=== PATIENT | female | born 1945 | race Caucasian/White ===

== ENCOUNTER 2017-04-02 14:46 | Observation (INO) | payer MEDICARE ==
--- NOTE | 2017-04-02 14:51 | ED ---
General Adult HPI - General Stated complaint: chest pain Time Seen by Provider: 04/02/17 14:48 Source: RN notes reviewed, old records reviewed - History of Present Illness Initial comments: This is a 71-year-old female ER for evaluation per patient coming in for evaluation of chest pain or syncope. Patient has history of high blood pressure high cholesterol, no prior history of specific heart disease. Has had heart catheterization greater than 10 years ago which was negative presumably. Patient has no fever no cough or congestion. Patient was taking going for a walk initially returned up a flight of stairs she became severely short of breath and diaphoretic and having anterior chest pain. Patient and EMS was called, and around the hospital patient states she has started to feel better, clamminess is decreasing shortness of breath is improved and chest pain is mildly existent - Related Data Home Medications Medication Instructions Recorded Confirmed Aspirin 81 mg PO DAILY 04/02/17 04/02/17 Atorvastatin [Lipitor] 20 mg PO Q48H 04/02/17 04/02/17 Calcium Carbonate/Vitamin D3 1 cap PO DAILY 04/02/17 04/02/17 [Calcium 600-Vit D3 500 Softgel] Diltiazem HCl [Diltiazem ER] 240 mg PO DAILY 04/02/17 04/02/17 Esomeprazole Magnesium [NexIUM] 40 mg PO DAILY 04/02/17 04/02/17 Ferrous Sulfate [Feosol] 325 mg PO DAILY 04/02/17 04/02/17 Gabapentin [Neurontin] 300 mg PO BID 04/02/17 04/02/17 Glucosam/Balaji-Msm1/C/Jason/Bosw 1 tab PO DAILY 04/02/17 04/02/17 [Glucosamine-Chondroitin Tablet] Hydroxychloroquine Sulfate 200 mg PO DAILY 04/02/17 04/02/17 [Plaquenil] Levothyroxine Sodium [Synthroid] 75 mcg PO DAILY 04/02/17 04/02/17 Multivit-Min/FA/Lycopen/Lutein 1 tab PO DAILY 04/02/17 04/02/17 [Centrum Silver Tablet] Temazepam 30 mg PO HS 04/02/17 04/02/17 predniSONE 10 mg PO DAILY 04/02/17 04/02/17 traMADol HCl [Ultram] 50 mg PO Q6H PRN 04/02/17 04/02/17 Allergies Allergy/AdvReac Type Severity Reaction Status Date / Time erythromycin base Allergy Rash/Hives Verified 04/02/17 15:06 Iodinated Contrast- Oral and Allergy Rash/Hives Verified 04/02/17 15:06 IV Dye oxcarbazepine Allergy Unknown Verified 04/02/17 15:06 [From Trileptal] Penicillins Allergy Rash/Hives Verified 04/02/17 15:06 Sulfa (Sulfonamide Allergy Rash/Hives Verified 04/02/17 15:06 Antibiotics) Review of Systems ROS Statement: Those systems with pertinent positive or pertinent negative responses have been documented in the HPI. ROS Other: All systems not noted in ROS Statement are negative. General Exam General appearance: alert, in no apparent distress Head exam: Present: atraumatic, normocephalic, normal inspection Eye exam: Present: normal appearance, PERRL, EOMI. Absent: scleral icterus, conjunctival injection, periorbital swelling ENT exam: Present: normal exam, mucous membranes moist Neck exam: Present: normal inspection. Absent: tenderness, meningismus, lymphadenopathy Respiratory exam: Present: normal lung sounds bilaterally. Absent: respiratory distress, wheezes, rales, rhonchi, stridor Cardiovascular Exam: Present: regular rate, normal rhythm, normal heart sounds. Absent: systolic murmur, diastolic murmur, rubs, gallop, clicks GI/Abdominal exam: Present: soft, normal bowel sounds. Absent: distended, tenderness, guarding, rebound, rigid Extremities exam: Present: normal inspection, full ROM, normal capillary refill. Absent: tenderness, pedal edema, joint swelling, calf tenderness Back exam: Present: normal inspection Neurological exam: Present: alert, oriented X3, CN II-XII intact Psychiatric exam: Present: normal affect, normal mood Skin exam: Present: warm, dry, intact, normal color. Absent: rash Course Vital Signs 04/02/17 14:52 Temperature 98.3 F Pulse Rate 76 Respiratory 18 Rate Blood Pressure 132/60 O2 Sat by Pulse 98 Oximetry - Reevaluation(s) Reevaluation #1: 04/02/17 15:39 Patient continues to remain asymptomatic his symptoms have improved upon arrival to Hospital EKG Findings - EKG Comments: EKG Findings:: EKG shows normal sinus rhythm rate of 71, HI 146, QRS 94, QTC 449 Medical Decision Making - Medical Decision Making 71 female ear with near syncopal event, chest pain. Patient was going up stairs and felt diaphoretic and short of breath with chest pain. EKG is negative for ST elevation, patient be admitted for cardiac observation and anticoagulation inflammatory - Lab Data Result diagrams: 04/02/17 15:04 04/02/17 15:04 Lab Results 04/02/17 04/02/17 04/02/17 Range/Units 15:04 15:04 15:04 WBC 3.6 L (3.8-10.6) k/uL RBC 4.08 (3.80-5.40) m/uL Hgb 12.7 (11.4-16.0) gm/dL Hct 35.6 (34.0-46.0) % MCV 87.3 (80.0-100.0) fL MCH 31.1 (25.0-35.0) pg MCHC 35.6 (31.0-37.0) g/dL RDW 12.4 (11.5-15.5) % Plt Count 177 (150-450) k/uL Neutrophils % 79 % Lymphocytes % 11 % Monocytes % 7 % Eosinophils % 1 % Basophils % 0 % Neutrophils # 2.8 (1.3-7.7) k/uL Lymphocytes # 0.4 L (1.0-4.8) k/uL Monocytes # 0.2 (0-1.0) k/uL Eosinophils # 0.0 (0-0.7) k/uL Basophils # 0.0 (0-0.2) k/uL PT 10.6 (9.0-12.0) sec INR 1.0 (<1.2) APTT 22.3 (22.0-30.0) sec Sodium 136 L (137-145) mmol/L Potassium 3.8 (3.5-5.1) mmol/L Chloride 99 (98-107) mmol/L Carbon Dioxide 27 (22-30) mmol/L Anion Gap 10 mmol/L BUN 25 H (7-17) mg/dL Creatinine 1.02 (0.52-1.04) mg/dL Est GFR (MDRD) Af Amer >60 (>60 ml/min/1.73 sqM) Est GFR (MDRD) Non-Af 53 (>60 ml/min/1.73 sqM) Glucose 143 H (74-99) mg/dL Calcium 9.2 (8.4-10.2) mg/dL Magnesium 1.6 (1.6-2.3) mg/dL Total Bilirubin 0.4 (0.2-1.3) mg/dL AST 34 (14-36) U/L ALT 34 (9-52) U/L Alkaline Phosphatase 50 (38-126) U/L Total Protein 6.4 (6.3-8.2) g/dL Albumin 4.1 (3.5-5.0) g/dL Lipase 379 H (23-300) U/L - Radiology Data Radiology results: report reviewed (Chest x-ray is negative for acute disease), image reviewed Critical Care Time Critical Care Time: Yes Total Critical Care Time: 31 Disposition Clinical Impression: Chest pain, Near syncope Disposition: ADMITTED IP TO THIS [facility] Condition: Undetermined Instructions: Chest Pain (ED) Referrals: Nonstaff,Physician [Primary Care Provider] - 1-2 days
[2017-04-02 15:22] LABS: Basophils % (A) 0 %; CH 30.8; CHCM 35.4; Eosinophils % (A) 1 %; HCT 35.6 % (34.0-46.0); HDW 2.45; HGB 12.7 gm/dL (11.4-16.0); Luc # (Auto) 0.07; Luc % (Auto) 2; Lymphocytes # (A) 0.4 k/uL (1.0-4.8); Lymphocytes % (A) 11 %; MCH 31.1 pg (25.0-35.0); MCHC 35.6 g/dL (31.0-37.0); MCV 87.3 fL (80.0-100.0); Mean Platelet Volume 6.7; Monocytes # (A) 0.2 k/uL (0-1.0); Monocytes % (A) 7 %; Neutrophils # (A) 2.8 k/uL (1.3-7.7); Neutrophils % (A) 79 %; RBC 4.08 m/uL (3.80-5.40); RDW 12.4 % (11.5-15.5); WBC 3.6 k/uL (3.8-10.6); WBC (Perox) 3.72
--- NOTE | 2017-04-02 15:23 | XR ---
EXAMINATION TYPE: XR chest 2V DATE OF EXAM: 04/02/2017 HISTORY: Chest Pain. REFERENCE: NONE. FINDINGS: There is some scarring or atelectasis at the left lung base. There is a prominent hiatal he rnia present behind the heart. Pleural spaces are clear. The heart is not enlarged. IMPRESSION: 1. SCARRING VERSUS ATELECTASIS, LEFT LUNG BASE. 2. LARGE HIATAL HERNIA.
[2017-04-02 15:29] LABS: ALT 34 U/L (9-52); AST 34 U/L (14-36); Alkaline Phosphatase 50 U/L (38-126); Anion Gap 10 mmol/L; Blood Urea Nitrogen 25 mg/dL (7-17); Calcium 9.2 mg/dL (8.4-10.2); Carbon Dioxide 27 mmol/L (22-30); Chloride 99 mmol/L (98-107); Glucose 143 mg/dL (74-99); Magnesium 1.6 mg/dL (1.6-2.3); Non-African American GFR(MDRD) 53 (>60 ml/min/1.73 sqM); Potassium 3.8 mmol/L (3.5-5.1); Sodium 136 mmol/L (137-145); Total Bilirubin 0.4 mg/dL (0.2-1.3); Total Protein 6.4 g/dL (6.3-8.2)
[2017-04-02 15:34] LABS: Partial Thromboplastin Time 22.3 sec (22.0-30.0); Prothrombin Time 10.6 sec (9.0-12.0)
[2017-04-02] MEDS ORDERED: NITROGLYCERIN SL TABS 0.4 MG TAB SUBLINGUAL PRN (15:34)
[2017-04-02] MEDS ORDERED: HEPARIN SODIUM,PORCINE 5,000 UNIT/ML 1 ML VIAL IV ONE (15:34)
[2017-04-02] MEDS ORDERED: HEPARIN SODIUM,PORCINE 5,000 UNIT/ML 1 ML VIAL IV PRN (15:34)
[2017-04-02] MEDS ORDERED: ASPIRIN 81 MG CHEW PO STA (15:34)
[2017-04-02 15:40] LABS: Creatine Kinase 84 U/L (30-135)
[2017-04-02] MEDS ORDERED: HEPARIN SODIUM,PORCINE/D5W PMX 25,000 UNIT in DEXTROSE/WATER 1 500ML.BAG IV SCH (15:45)
[2017-04-02 15:52] LABS: Creatine Kinase MB 1.6 ng/mL (0.0-2.4); Troponin I <0.012 ng/mL (0.000-0.034)
[2017-04-02] MEDS: SODIUM CHLORIDE 0.9% 1,000 ML IV SCH (15:59)
[2017-04-02] MEDS ORDERED: TEMAZEPAM 30 MG CAP PO SCH (21:00)
[2017-04-02] MEDS: GABAPENTIN 300 MG CAP PO SCH (21:15)
[2017-04-02 21:42] LABS: Creatine Kinase 82 U/L (30-135)
[2017-04-02 21:55] LABS: Creatine Kinase MB 1.3 ng/mL (0.0-2.4); Troponin I <0.012 ng/mL (0.000-0.034)
[2017-04-03] MEDS: SODIUM CHLORIDE 0.9% 1,000 ML IV SCH ×2 (00:53→12:19)
[2017-04-03 04:45] LABS: Creatine Kinase 76 U/L (30-135)
[2017-04-03 04:50] LABS: Basophils % (A) 0 %; CH 30.6; CHCM 34.7; Eosinophils # (A) 0.1 k/uL (0-0.7); Eosinophils % (A) 4 %; HCT 34.6 % (34.0-46.0); HDW 2.45; HGB 11.8 gm/dL (11.4-16.0); Luc % (Auto) 4; Lymphocytes # (A) 0.6 k/uL (1.0-4.8); Lymphocytes % (A) 25 %; MCH 30.1 pg (25.0-35.0); MCHC 34.1 g/dL (31.0-37.0); MCV 88.3 fL (80.0-100.0); Mean Platelet Volume 7.1; Monocytes # (A) 0.3 k/uL (0-1.0); Monocytes % (A) 10 %; Neutrophils # (A) 1.5 k/uL (1.3-7.7); Neutrophils % (A) 58 %; RBC 3.92 m/uL (3.80-5.40); RDW 12.6 % (11.5-15.5); WBC 2.6 k/uL (3.8-10.6); WBC (Perox) 2.72
[2017-04-03 04:58] LABS: Creatine Kinase MB 1.3 ng/mL (0.0-2.4); Troponin I <0.012 ng/mL (0.000-0.034)
[2017-04-03 05:11] LABS: ALT 35 U/L (9-52); AST 33 U/L (14-36); Alkaline Phosphatase 42 U/L (38-126); Amylase 80 U/L (30-110); Anion Gap 8 mmol/L; Blood Urea Nitrogen 20 mg/dL (7-17); Calcium 8.5 mg/dL (8.4-10.2); Carbon Dioxide 26 mmol/L (22-30); Chloride 106 mmol/L (98-107); Glucose 71 mg/dL (74-99); Non-African American GFR(MDRD) >60 (>60 ml/min/1.73 sqM); Potassium 3.5 mmol/L (3.5-5.1); Sodium 140 mmol/L (137-145); Total Bilirubin 0.3 mg/dL (0.2-1.3); Total Protein 5.5 g/dL (6.3-8.2)
[2017-04-03 05:25] LABS: Cholesterol 158 mg/dL (<200); HDL Cholesterol 77 mg/dL (40-60)
[2017-04-03] MEDS ORDERED: LEVOTHYROXINE 75 MCG TAB PO SCH (06:30)
[2017-04-03] MEDS ORDERED: PANTOPRAZOLE 40 MG TABLET PO SCH (07:30)
--- NOTE | 2017-04-03 08:25 | US ---
EXAMINATION TYPE: US abdomen complete DATE OF EXAM: 04/03/2017 COMPARISON: NONE CLINICAL HISTORY: elevated lipase. Elevated lipase, intermittent epigastric pain x 1 week EXAM MEASUREMENTS: Liver Length: 14.4 cm Gallbladder Wall: 0.2 cm CBD: 0.6 cm Spleen: 9.2 cm Right Kidney: 9.8 x 4.8 x 4.6 cm Left Kidney: 8.0 x 4.1 x 4.4 cm Pancreas: visualized portions wnl, body and tail obscured by overlying midline bowel gas Liver: somewhat heterogeneous echotexture without any definite lesions seen at this time Gallbladder: wnl Evidence for sonographic Jama's sign: no CBD: measures in upper limits of normal at 0.6cm Spleen: visualized portions wnl, limited by overlying bowel gas Right Kidney: wnl Left Kidney: appear heterogeneous and small in size with 1.3cm cystic area midpole, possible cyst vs . dilated renal pelvis Upper IVC: wnl Abd Aorta: visualized portions wnl, limited by overlying midline bowel gas The liver is coarse in its overall echo texture. The intrahepatic portion of the IVC and proximal abd ominal aorta are within normal limits. There is no evidence of cholelithiasis. Common bile duct is unremarkable. The visualized portions of the pancreas are homogenous. The spleen is unremarkable. R enal parenchymal thinning bilaterally left greater than right. Left renal cortical cyst midpole measu ring 1.3 cm parapelvic in location. IMPRESSION: 1. Fatty liver versus diffuse hepatocellular disease. 2. Renal parenchymal thinning and suggestion medical renal disease. Parapelvic cyst left kidney.
--- NOTE | 2017-04-03 08:36 | P.GSCN ---
History of Present Illness Consult date: 04/03/17 Reason for Consult: Elevated lipase History of present illness: The patient's a pleasant 71-year-old female who was at the beach yesterday. She walked up some stairs. When she began to walk to the parking lot however she developed significant pressure in her chest along with shortness of breath. She came into the emergency department via ambulance and is proved since admission. She's never had anything like this in the past. No previous heart disease. No abdominal pain, nausea, vomiting. She does have a known hiatal hernia 40 years along with Guillen's esophagus. Her last endoscopy was about a year ago. She occasionally has acid reflux but this does not feel like acid reflux to her. No blood in the stools or dark tarry stools. No previous history of pancreatitis. Her sister has been recently diagnosed with pancreatic cancer, about a year ago, and is undergoing chemotherapy Review of Systems All systems: negative Past Medical History Past Medical History: Cancer, Fibromyalgia, GERD/Reflux, Hyperlipidemia, Hypertension, Osteoarthritis (OA), Rheumatoid Arthritis (RA), Thyroid Disorder Additional Past Medical History / Comment(s): Lupus, pericarditis, bronchitis, ischemic colitis x2, basal cell skin ca and stage 2 uterine cancer-had sx/rad/ chemo, tremors, migraines, hiatal hernia, Guillen's esophagus History of Any Multi-Drug Resistant Organisms: None Reported Past Surgical History: Heart Catheterization, Hysterectomy, Orthopedic Surgery, Tonsillectomy, Tubal Ligation Additional Past Surgical History / Comment(s): rectal fissure/abcess, x2 lt ankle arthroscopies. benign cysts removed. Additional Past Anesthesia/Blood Transfusion Reaction / Comm: blood transfusion- no reaction. clausterphobic. Smoking Status: Former smoker Past Alcohol Use History: None Reported (She does not currently drink however she says she did use to drink quite a bit of beer) - Past Family History Mother Family Medical History: Cancer, Hypertension, Thyroid Disorder Additional Family Medical History / Comment(s): mom from colon ca at age 49 Father Family Medical History: Cancer, Prostate Disorder Additional Family Medical History / Comment(s): from prostate cancer at age 68 Medications and Allergies Home Medications Medication Instructions Recorded Confirmed Type Aspirin 81 mg PO DAILY 04/02/17 04/02/17 History Atorvastatin [Lipitor] 20 mg PO Q48H 04/02/17 04/02/17 History Calcium Carbonate/Vitamin D3 1 cap PO DAILY 04/02/17 04/02/17 History [Calcium 600-Vit D3 500 Softgel] Ioaflwbzmxultn-AE-Laifgoveen 1 tab PO DAILY 04/02/17 04/02/17 History [Folbic] Diltiazem HCl [Diltiazem ER] 240 mg PO DAILY 04/02/17 04/02/17 History Esomeprazole Magnesium [NexIUM] 40 mg PO DAILY 04/02/17 04/02/17 History Ferrous Sulfate [Feosol] 325 mg PO DAILY 04/02/17 04/02/17 History Gabapentin [Neurontin] 300 mg PO BID 04/02/17 04/02/17 History Glucosam/Balaji-Msm1/C/Jason/Bosw 1 tab PO DAILY 04/02/17 04/02/17 History [Glucosamine-Chondroitin Tablet] Hydroxychloroquine Sulfate 200 mg PO DAILY 04/02/17 04/02/17 History [Plaquenil] Levothyroxine Sodium [Synthroid] 75 mcg PO DAILY 04/02/17 04/02/17 History Multivit-Min/FA/Lycopen/Lutein 1 tab PO DAILY 04/02/17 04/02/17 History [Centrum Silver Tablet] Temazepam 30 mg PO HS 04/02/17 04/02/17 History predniSONE 2.5 mg PO DAILY 04/02/17 04/02/17 History traMADol HCl [Ultram] 50 mg PO Q6H PRN 04/02/17 04/02/17 History Allergies Allergy/AdvReac Type Severity Reaction Status Date / Time erythromycin base Allergy Rash/Hives Verified 04/02/17 21:28 Iodinated Contrast- Oral and Allergy Rash/Hives Verified 04/02/17 21:28 IV Dye oxcarbazepine Allergy Unknown Verified 04/02/17 21:28 [From Trileptal] Penicillins Allergy Rash/Hives Verified 04/02/17 21:28 Sulfa (Sulfonamide Allergy Rash/Hives Verified 04/02/17 21:28 Antibiotics) Surgical - Exam Osteopathic Statement: *. No significant issues noted on an osteopathic structural exam other than those noted in the History and Physical/Consult. Vital Signs Temp Pulse Resp BP Pulse Ox 98.3 F 76 18 132/60 98 04/02/17 14:52 04/02/17 14:52 04/02/17 14:52 04/02/17 14:52 04/02/17 14:52 - General well developed, well nourished, no distress - Eyes normal ocular movement - ENT normal mucosa, no hearing loss, no congestion - Neck trachea midline, no venous distension - Respiratory normal respiratory effort, clear to auscultation - Cardiovascular Rhythm: regular - Abdomen Abdomen: soft, non tender, bowel sounds, no guarding, no rigid, no rebound, no distended - Psychiatric oriented to time, oriented to person, oriented to place, speech is normal, memory intact Results - Labs 04/03/17 04:00 04/03/17 04:00 Abnormal Lab Results - Last 24 Hours (Table) 04/02/17 04/02/17 04/02/17 Range/Units 15:04 15:04 21:01 WBC 3.6 L (3.8-10.6) k/uL Plt Count (150-450) k/uL Lymphocytes # 0.4 L (1.0-4.8) k/uL APTT 52.8 H (22.0-30.0) sec Sodium 136 L (137-145) mmol/L BUN 25 H (7-17) mg/dL Glucose 143 H (74-99) mg/dL Total Protein (6.3-8.2) g/dL Albumin (3.5-5.0) g/dL HDL Cholesterol (40-60) mg/dL Lipase 379 H (23-300) U/L 04/03/17 04/03/17 04/03/17 Range/Units 04:00 04:00 04:00 WBC 2.6 L (3.8-10.6) k/uL Plt Count 149 L (150-450) k/uL Lymphocytes # 0.6 L (1.0-4.8) k/uL APTT 52.3 H (22.0-30.0) sec Sodium (137-145) mmol/L BUN (7-17) mg/dL Glucose (74-99) mg/dL Total Protein (6.3-8.2) g/dL Albumin (3.5-5.0) g/dL HDL Cholesterol 77 H (40-60) mg/dL Lipase (23-300) U/L 04/03/17 Range/Units 04:00 WBC (3.8-10.6) k/uL Plt Count (150-450) k/uL Lymphocytes # (1.0-4.8) k/uL APTT (22.0-30.0) sec Sodium (137-145) mmol/L BUN 20 H (7-17) mg/dL Glucose 71 L (74-99) mg/dL Total Protein 5.5 L (6.3-8.2) g/dL Albumin 3.4 L (3.5-5.0) g/dL HDL Cholesterol (40-60) mg/dL Lipase 430 H (23-300) U/L Diabetes panel 04/02/17 04/03/17 04/03/17 Range/Units 15:04 04:00 04:00 Sodium 136 L 140 (137-145) mmol/L Potassium 3.8 3.5 (3.5-5.1) mmol/L Chloride 99 106 (98-107) mmol/L Carbon Dioxide 27 26 (22-30) mmol/L BUN 25 H 20 H (7-17) mg/dL Creatinine 1.02 0.80 (0.52-1.04) mg/dL Glucose 143 H 71 L (74-99) mg/dL Calcium 9.2 8.5 (8.4-10.2) mg/dL AST 34 33 (14-36) U/L ALT 34 35 (9-52) U/L Alkaline Phosphatase 50 42 (38-126) U/L Total Protein 6.4 5.5 L (6.3-8.2) g/dL Albumin 4.1 3.4 L (3.5-5.0) g/dL Triglycerides 27 (<150) mg/dL HDL Cholesterol 77 H (40-60) mg/dL Calcium panel 04/02/17 04/03/17 Range/Units 15:04 04:00 Calcium 9.2 8.5 (8.4-10.2) mg/dL Albumin 4.1 3.4 L (3.5-5.0) g/dL Pituitary panel 04/02/17 04/03/17 Range/Units 15:04 04:00 Sodium 136 L 140 (137-145) mmol/L Potassium 3.8 3.5 (3.5-5.1) mmol/L Chloride 99 106 (98-107) mmol/L Carbon Dioxide 27 26 (22-30) mmol/L BUN 25 H 20 H (7-17) mg/dL Creatinine 1.02 0.80 (0.52-1.04) mg/dL Glucose 143 H 71 L (74-99) mg/dL Calcium 9.2 8.5 (8.4-10.2) mg/dL Adrenal panel 04/02/17 04/03/17 Range/Units 15:04 04:00 Sodium 136 L 140 (137-145) mmol/L Potassium 3.8 3.5 (3.5-5.1) mmol/L Chloride 99 106 (98-107) mmol/L Carbon Dioxide 27 26 (22-30) mmol/L BUN 25 H 20 H (7-17) mg/dL Creatinine 1.02 0.80 (0.52-1.04) mg/dL Glucose 143 H 71 L (74-99) mg/dL Calcium 9.2 8.5 (8.4-10.2) mg/dL Total Bilirubin 0.4 0.3 (0.2-1.3) mg/dL AST 34 33 (14-36) U/L ALT 34 35 (9-52) U/L Alkaline Phosphatase 50 42 (38-126) U/L Total Protein 6.4 5.5 L (6.3-8.2) g/dL Albumin 4.1 3.4 L (3.5-5.0) g/dL Assessment and Plan (1) Elevated lipase Status: Acute (2) Chest pain Status: Acute (3) Near syncope Status: Acute Plan: An ultrasound of the pancreas has been completed, the report is pending. I doubt the chest pressure and shortness of breath are related to the elevated lipase. Recommend cardiac workup. Follow up on a when necessary basis
[2017-04-03] MEDS ORDERED: predniSONE 10 MG TAB PO SCH (09:00)
[2017-04-03] MEDS ORDERED: ASPIRIN 81 MG CHEW PO SCH (09:00)
[2017-04-03] MEDS ORDERED: DILTIAZEM CD 240 MG CAP.ER.24H PO SCH (09:00)
[2017-04-03] MEDS ORDERED: CALCIUM CARB-VIT D 500MG-200UN 1 EACH TAB PO SCH (09:00)
[2017-04-03] MEDS ORDERED: ASPIRIN 325 MG TAB PO SCH (09:00)
[2017-04-03] MEDS ORDERED: ATORVASTATIN 80 MG TAB PO SCH (09:00)
[2017-04-03] MEDS ORDERED: HYDROXYCHLOROQUINE SULFATE 200 MG TAB PO SCH (09:00)
[2017-04-03] MEDS ORDERED: FERROUS SULFATE 325 MG TAB PO SCH (09:00)
[2017-04-03] MEDS ORDERED: methylPREDNISolone SOD SUCCI 125 MG/2 ML VIAL IV STA (10:03)
[2017-04-03] MEDS ORDERED: diphenhydrAMINE 50 MG/ML 1 ML VIAL IVP STA (10:03)
[2017-04-03] MEDS ORDERED: SODIUM CHLORIDE 0.9% 1,000 ML in EMPTY BAG 1 BAG IV ONE (10:07)
[2017-04-03] MEDS ORDERED: NITROGLYCERIN SL TABS 0.4 MG TAB SUBLINGUAL PRN (10:07)
[2017-04-03] MEDS ORDERED: ASPIRIN 325 MG TAB PO STA (10:07)
[2017-04-03] MEDS ORDERED: ALPRAZolam 0.25 MG TAB PO PRN (10:07)
[2017-04-03] MEDS ORDERED: ATORVASTATIN 80 MG TAB PO STA (10:07)
[2017-04-03] MEDS ORDERED: ALPRAZolam 0.5 MG TAB PO PRN (10:07)
[2017-04-03] MEDS ORDERED: METOPROLOL TARTRATE 12.5 MG TAB PO SCH (10:15)
[2017-04-03] MEDS: GABAPENTIN 300 MG CAP PO SCH (10:16)
[2017-04-03] MEDS ORDERED: LIDOCAINE 2% INJ 20 MG/ML (20 ML MDV) ONE (10:28)
[2017-04-03] MEDS ORDERED: LISINOPRIL 20 MG TAB PO SCH ×2 (10:45→21:00)
[2017-04-03] MEDS ORDERED: diphenhydrAMINE 50 MG/ML 1 ML VIAL ONE (10:49)
[2017-04-03] MEDS ORDERED: VERAPAMIL 2.5 MG/ML 2 ML AMP ONE (10:49)
[2017-04-03] MEDS ORDERED: MIDAZOLAM 2 MG/2 ML VIAL ONE (10:49)
[2017-04-03] MEDS ORDERED: IV FLUID CONTINUATION 1,000 ML IV ONE (10:50)
[2017-04-03] MEDS ORDERED: HEPARIN SODIUM 1,000 UN/ML (10ML VL) ONE (10:52)
--- NOTE | 2017-04-03 11:05 | HP ---
CHIEF COMPLAINT: 71 year old white female admitted with chest pain and syncope. HISTORY OF PRESENT ILLNESS: This is a 71 year old white female with history of hypertension, dyslipidemia with no prior history of heart disease with a negative heart catheterization ten years ago was up ambulating up a flight of stairs along the beach, became severe short of breath, diaphoretic with anterior chest pain. She was brought to the hospital due to clamminess, shortness of breath and chest pain. She was admitted into the hospital for rule out myocardial infarction. She has a history of two episodes of ischemic colitis. She was found to have elevated lipase in the emergency room. She has chronic indigestion. Home medications include: 1. Aspirin 81 mg daily. 2. Lipitor 20 mg every 48 hours. 3. Calcium with vitamin D daily. 4. Diltiazem 240 daily. 5. Nexium 40 mg daily. 6. Ferrous sulfate 325 daily. 7. Neurontin 300 b.i.d. 8. Glucosamine one daily. 9. ( ) 200 mg daily. 10. Synthroid 75 mcg daily. 11. Multivitamin daily. 12. Temazepam 30 daily. 13. Prednisone 10 mg daily. 14. Tramadol 50 mg q6h. ALLERGIES TO ERYTHROMYCIN, IODINE, TRILEPTAL, SULFA. REVIEW OF SYSTEMS: 14 point review of systems negative except for what is mentioned in the HPI. PHYSICAL EXAM: Temp 98.3, pulse 70 to 76, respiratory rate 12 to 16. Blood pressures 130s/160s. O2 sat 98% on room air. PSYCH: Fair mood and affect. GI : Mild tender epigastric area. Normal bowel sounds. Hematological: Negative Homans. Vascular: Normal dorsalis pedis, posterior tibial, radial pulses. Psych : Fair mood and affect. Neurological: Alert and oriented times three. Cardiovascular: S1, S2 without murmurs, rubs or gallops. Lungs are clear without rales, rhonchi or wheezing. EKG sinus rhythm. Negative D. dimer. Labs were reviewed. including Sodium 136 , potassium 3.8, white count 3.6, hemoglobin 12.7. BUN 25, creatinine 1.02. Glucose 143, calcium 9.2. Lipase 379. ASSESSMENT: 1. Chest pain. 2. Near syncope. 3. Rule out myocardial infarction. 4. History of hypothyroidism. 5. Hypertension. 6. Dyslipidemia. 7. Possible pancreatitis. 8. Possible hiatal hernia versus gastroesophageal reflux disease. Cardiology consult, rule out myocardial infarction. Surgical consult for elevated lipase. Order abdominal ultrasound and possible surgery for chronic large hiatal hernia and chronic indigestion. Surgical consult Dr. Portillo will be ordered. We will make sure cardiac clearance and surgical clearance is seen. JOYCE
[2017-04-03] MEDS: MIDAZOLAM 2 MG/2 ML VIAL IVP ONE ×2 (11:11→11:22)
[2017-04-03] MEDS ORDERED: diphenhydrAMINE 50 MG/ML 1 ML VIAL IVP ONE (11:11)
[2017-04-03] MEDS ORDERED: LIDOCAINE 2% INJ 20 MG/ML SQ ONE (11:12)
[2017-04-03] MEDS ORDERED: methylPREDNISolone SOD SUCCI 125 MG/2 ML VIAL ONE (11:14)
[2017-04-03] MEDS ORDERED: methylPREDNISolone SOD SUCCI 125 MG/2 ML VIAL IVP ONE (11:15)
[2017-04-03] MEDS ORDERED: VERAPAMIL SYRINGE (5 MG/10 ML) INTRAARTER ONE (11:16)
[2017-04-03] MEDS ORDERED: HEPARIN SODIUM 1,000 UN/ML (10ML VL) IV ONE (11:19)
[2017-04-03] MEDS ORDERED: NITROGLYCERIN SL TABS 0.4 MG TAB SUBLINGUAL ONE ×2 (11:42)
[2017-04-03] MEDS ORDERED: IOHEXOL 350 MG/ML 100 ML BOTTLE INJ ONE (11:49)
[2017-04-03] MEDS ORDERED: SODIUM CHLORIDE 0.9% 1,000 ML IV SCH (12:00)
[2017-04-03] MEDS ORDERED: MULTIVITAMINS, THERA 1 EACH TAB PO SCH (12:00)
--- NOTE | 2017-04-03 12:06 | P.PCN ---
Date of Procedure: 04/03/17 Preoperative Diagnosis: Unstable angina , hypertension Postoperative Diagnosis: Same Procedure(s) Performed: Implants: Anesthesia: other (Moderate conscious sedation with Versed and Benadryl was provided for a total duration of 30 minutes. Patient was monitored closely.) Indications for Procedure: Operative Findings: Description of Procedure: Left heart catheterization, coronary angiography and left ventriculography Form by Dr. Pavel Walker Date of procedure 04/03/2017 This patient presented to the hospital with a episode of chest pain and diaphoresis strongly suggestive angina after moderate physical activity Was advised coronary angiography and intervention based on findings. Risks and benefits options were carefully explained to the patient. She understood all details and wish to proceed with the procedure. Procedure note: Under strict aseptic precautions and local anesthesia, a 6-Yi introducer was placed in the right radial artery. I used a ultimatum on catheter and with this I perform selective coronary angiography of the left system. Using an notebook catheter I had subselective injections and then used a JR4 with a good angiography of RCA. Using a pigtail catheter I perform left ventricular of a. The sheath was taken out and a TR band applied as per protocol. Saturation in the fingers of the right hand was 98%. Patient tolerated the procedure well without complication. Moderate conscious sedation was provided with the Benadryl and Versed for a total duration of 30 minutes. Oxygenation was monitored closely. Cardiac catheterization findings: Left ventricular end-diastolic pressure was 22 mmHg without any change after the LV gram and there was no gradient across the aortic valve. Left main coronary artery this is a short patent disease-free vessel that bifurcates into LAD and circumflex. No significant disease in the left main was noted. Left Anterior descending coronary artery: This is a good caliber vessel gives off small septal and diagonal branches tortuous runs all the way to the apex has minor diffuse irregularities but no significant disease is noted. Left posterior circumflex coronary artery: The nondominant small caliber smaller distribution vessel is tortuous mildly calcified minor irregularities and no significant disease Right coronary artery: The dominant disease-free vessel that bifurcates into PDA and PLV both of his supply a sizable amount of myocardium. No significant disease in the RCA system which is a dominant vessel. Left ventriculogram: Normal-sized LV with good systolic function some ventricular ectopy ejection fraction 65% no mitral regurgitation of significance Final impression: No significant CAD, right dominant system slightly elevated filling pressures normal systolic function no significant mitral regurgitation. Recommendations: Findings are discussed with the patient and family specifically her . I am recommending continued medical therapy without any intervention. Patient can be discharged later on today if she remains stable. I will see her in the office next week. Discharge instructions regarding activity diet and medications were given.
--- NOTE | 2017-04-03 12:18 | CONS ---
A 71-year-old lady with history of hypertension, hyperlipidemia and a cardiac cath 10 years ago that was apparently unremarkable came into the hospital yesterday through the emergency room. She went for a walk with her family. She went down about almost 60 ( ) down the steps and came back up, felt extremely exhausted. Her knee joints hurt then she walked about 50 yards to the car and had extremely heavy pressure in the chest with diaphoresis, strongly suggestive of angina. She rested for awhile, felt better and then came to emergency room. Troponins are normal. EKG is unremarkable. Symptoms strongly suggest unstable angina. She has been having some exertional shortness of breath, but this is the most severe episode that she had. She has hypertension and hyperlipidemia. Her stress test was more than 5 years ago. She also has hypothyroidism as well. PAST MEDICAL HISTORY: 1. Hypertension. 2. Hyperlipidemia. 3. Hypothyroidism. 4. History of uterine cancer, status post total hysterectomy and salpingo- oophorectomy performed 9 years ago. Medications at home include atorvastatin, lisinopril, tramadol, diltiazem 240 mg daily, aspirin 81 mg daily. ALLERGIES: She is allergic to IODINE CONTRAST, PENICILLIN, SULFA, ERYTHROMYCIN. On examination, blood pressure is 150/70, pulse rate 70 per minute and regular. HEENT: Unremarkable. Fundus was not examined by me. Neck is supple. No JVD. I do not hear a carotid bruit. There is no thyromegaly. Heart exam reveals S1, S2 heard normally without rub, murmur or gallop. Lungs are clear. Abdomen is soft, nontender. Lower extremities reveal normal pulses. No edema. Central nervous system is normal. EKG reveals sinus mechanism, no acute changes. Laboratory data revealed unremarkable troponins. BUN and creatinine appear to be normal. D-dimer is also within normal limits. IMPRESSION: 1. Chest pain syndrome, strongly suggestive of unstable angina. 2. Hypertension. 3. Hyperlipidemia. 4. History of IODINE allergy. RECOMMENDATIONS: I am going to pretreat the patient with steroids and Benadryl. Proceed with cardiac catheterization and PCI if indicated. Risks, benefits, options rationale explained. Patient understands all details and wishes to proceed with the procedure. JOYCE
--- NOTE | 2017-04-03 12:43 | P.PN ---
Progress Note - Text The patient's ultrasound of the biliary tree And pancreas are unremarkable. Possibly some hepato-cellular disease. Her liver function tests were normal however. I don't feel the elevated lipase Is significant at this time. Repeat lipase as outpatient in 2-4 weeks.
[2017-04-03 16:05] VITALS: BP 153/65; PULSE 67; RESP 14; TEMP 98.6
[2017-04-04] MEDS ORDERED: ASPIRIN 81 MG CHEW PO SCH (09:00)
[2017-04-04] MEDS ORDERED: ATORVASTATIN 80 MG TAB PO SCH (09:00)
== END 2017-04-03 19:10 | disposition home or self-care (01) ==
LOC: EC 14:46 → 3OBS 15:35
PROVIDERS: ADMIT Family Medicine; ATTEND Family Medicine
DX: I20.0 Unstable angina (principal); I10 Essential (primary) hypertension; R07.9 Chest pain, unspecified; R55 Syncope and collapse; E03.9 Hypothyroidism, unspecified; E78.5 Hyperlipidemia, unspecified; E78.00 Pure hypercholesterolemia, unspecified; R06.02 Shortness of breath; R61 Generalized hyperhidrosis; Z79.82 Long term (current) use of aspirin; Z88.0 Allergy status to penicillin; Z91.041 Radiographic dye allergy status; Z88.2 Allergy status to sulfonamides; Z88.8 Allergy status to other drugs, medicaments and biological substances; Z79.899 Other long term (current) drug therapy; K44.9 Diaphragmatic hernia without obstruction or gangrene; K52.89 Other specified noninfective gastroenteritis and colitis; R74.8 Abnormal levels of other serum enzymes; K30 Functional dyspepsia; K21.9 Gastro-esophageal reflux disease without esophagitis; M79.7 Fibromyalgia; M06.9 Rheumatoid arthritis, unspecified; K22.70 Barrett's esophagus without dysplasia; Z85.42 Personal history of malignant neoplasm of other parts of uterus; Z85.828 Personal history of other malignant neoplasm of skin; Z90.710 Acquired absence of both cervix and uterus; Z80.0 Family history of malignant neoplasm of digestive organs; Z92.21 Personal history of antineoplastic chemotherapy
CPT/HCPCS: 96376 ×2; 96365 ×2; 99291 ×2; 96366 ×2; 36415; 93005; 93458; 85379; 80061; 80053 ×2; 82150; 82550 ×2; 82553 ×2; 83690 ×2; 83735; 84484 ×2; 85025 ×2; 85610; 85730 ×2; 71020; 76700; G0378 ×2; C1769; C1894; J2001; J2250; J1200; J1644 ×3; J2930; Q9967; J7512